=== PATIENT | male | born 2000 ===

== ENCOUNTER 2018-06-21 00:56 | Emergency (ER) | payer OTHER ==
[2018-06-21] MEDS ORDERED: NS 0.9% 1000 ML** 2,000 ML IV ONE (01:10)
[2018-06-21] MEDS ORDERED: Ondansetron INJ* 2 MG/ML VIAL IV ONE (01:10)
--- NOTE | 2018-06-21 01:16 | ED ---
Abdominal Pain/Male - HPI Summary HPI Summary: This patient is a 17 year old M presenting to [facility] with a chief complaint of emesis since 20:30 tonight. The patient rates the pain 4/10 in severity. Patient reports hematemesis, headache, abdominal discomfort throughout the day, upper abdominal pain currently, diarrhea, and feeling faint upon standing. Patient denies being on any medication or knowing anyone else who is sick. - History of Current Complaint Chief Complaint: EDAbdPain Stated Complaint: POSS SYNCOPE Time Seen by Provider: 06/21/18 01:05 Hx Obtained From: Patient Onset/Duration: Sudden Onset, Lasting Hours, Still Present Severity Initially: Moderate Severity Currently: Moderate Pain Intensity: 4 Pain Scale Used: 0-10 Numeric Location: Other - Upper abdomen Associated Signs And Symptoms: Positive: Vomiting, Diarrhea, Other - Hematemesis , headache, and feeling "faint" upon standing up. - Allergies/Home Medications Allergies/Adverse Reactions: Allergies Allergy/AdvReac Type Severity Reaction Status Date / Time No Known Allergies Allergy Verified 06/21/18 01:01 PMH/Surg Hx/FS Hx/Imm Hx Endocrine/Hematology History: Denies: Hx Diabetes Cardiovascular History: Denies: Hx Hypertension, Hx Pacemaker/ICD History: Denies: Hx Dialysis, Hx Renal Disease Sensory History: Denies: Hx Hearing Aid Psychiatric History: Denies: Hx Panic Disorder - Surgical History Surgery Procedure, Year, and Place: WISDOM TEETH Infectious Disease History: No Infectious Disease History: Denies: Traveled Outside the [place] in Last 30 Days - Family History Known Family History: Positive: Diabetes Negative: Cardiac Disease, Hypertension - Social History Occupation: Student Lives: Dormitory/Roommates Alcohol Use: Occasionally Substance Use Type: Reports: None Hx Tobacco Use: No Review of Systems Positive: Abdominal Pain - abdominal discomfort throughout the day, upper abdominal pain currently, Vomiting - Hematemesis, Diarrhea Neurological: Other - Feeling "faint" upon standing Positive: Headache All Other Systems Reviewed And Are Negative: Yes Physical Exam - Summary Physical Exam Summary: Appearance: Well-appearing, Well-nourished, lying in bed comfortably Skin: Warm, dry, no obvious rash Eyes: sclera anicteric, no conjunctival pallor ENT: mucous membranes moist, pharynx appears normal Neck: Supple, nontender Respiratory: Clear to auscultation, no signs of respiratory distress Cardiovascular: Normal S1, S2. No murmurs. Normal distal pulses in tibial and radial bilaterally. Abdomen: Soft, nontender, normal active bowel sounds present Musculoskeletal: Normal, Strength/ROM Intact Neurological: A&Ox3, awake and alert, mentation is normal, speech is fluent and appropriate Psychiatric: affect is normal, does not appear anxious or depressed Triage Information Reviewed: Yes Vital Signs On Initial Exam: Initial Vitals Temp Pulse Resp BP Pulse Ox 98.0 F 119 16 103/73 98 06/21/18 00:59 06/21/18 00:59 06/21/18 00:59 06/21/18 00:59 06/21/18 00:59 Vital Signs Reviewed: Yes Diagnostics - Vital Signs Vital Signs Temp Pulse Resp BP Pulse Ox 06/21/18 00:59 98.0 F 119 16 103/73 98 - Laboratory Result Diagrams: 06/21/18 01:19 06/21/18 01:19 Lab Statement: Any lab studies that have been ordered have been reviewed, and results considered in the medical decision making process. Abdominal Pain Male Course/Dx - Course Course Of Treatment: This patient is a 17 year old M presenting to [facility] with a chief complaint of emesis since 20:30 tonight. Patient will be discharged with a dx of viral gastroenteritis. - Diagnoses Provider Diagnoses: Viral gastroenteritis Discharge - Sign-Out/Discharge Documenting (check all that apply): Patient Departure - D/C Patient Received Moderate/Deep Sedation with Procedure: No - Discharge Plan Condition: Good Disposition: HOME Prescriptions: Ondansetron ODT TAB* [Zofran 4 MG Odt TAB*] 8 mg PO Q6H PRN #10 tab.odt PRN Reason: Nausea Patient Education Materials: Gastroenteritis (ED) Referrals: [facility] [Outside] - 2 Days (if not improving) - Billing Disposition and Condition Condition: GOOD Disposition: Home - Attestation Statements Document Initiated by Scribe: Yes Documenting Scribe: Jonathan Sosa Provider For Whom Dane is Documenting (Include Credential): Zheng Neumann MD Scribe Attestation: Jonathan Mayfield, scribed for Zheng Neumann MD on 06/22/18 at 0448. Scribe Documentation Reviewed: Yes Provider Attestation: The documentation as recorded by the Jonathan mckeon accurately reflects the service I personally performed and the decisions made by me, Zheng Neumann MD Status of Scribe Document: Viewed
[2018-06-21 01:29] LABS: ABS Basophils 0.1 10^3/ul (0-0.2); ABS Eosinophils 0.1 10^3/ul (0-0.6); ABS Lymphocytes 0.2 10^3/ul (1.0-4.8); ABS Neutrophils 13.7 10^3/ul (1.5-7.7); ABS Nucleated RBC 0.1 10^3/ul; Eosinophil % 0.3 %; Hematocrit 53 % (42-52); Hemoglobin 18.2 g/dl (14.0-18.0); Lymphocyte % 1.6 %; Mean Corpuscular HGB Conc 34 g/dl (31-36); Mean Corpuscular Hemoglobin 30 pg (27-31); Mean Corpuscular Volume 87 fL (80-94); Mean Platelet Volume 7.8 fL (7.4-10.4); Nucleated Red Blood Cells % 0.4; Platelet Count 238 10^3/ul (150-450); Red Blood Count 6.08 10^6/ul (4.00-5.40); Red Cell Distribution Width 14 % (10.5-15); White Blood Count 15.2 10^3/ul (3.5-10.8)
[2018-06-21 01:48] LABS: ALT 21 U/L (7-52); AST 28 U/L (13-39); Albumin 5.4 g/dL (3.2-5.2); Albumin/Globulin Ratio 1.7 (1-3); Alkaline Phosphatase 64 U/L (34-104); Anion Gap 14 mmol/L (2-11); BUN/Creatinine Ratio 15.5 (8-20); Blood Urea Nitrogen 17 mg/dL (6-24); C Reactive Protein 2.64 mg/L (<8.01); CO2 Carbon Dioxide 22 mmol/L (22-32); Calcium 10.2 mg/dL (8.6-10.3); Chloride 102 mmol/L (101-111); EGFR African American 104.3 (>60); EGFR Non-African American 86.2 (>60); Globulin 3.2 g/dL (2-4); Glucose 128 mg/dL (70-100); Potassium 4.4 mmol/L (3.5-5.0); Sodium 138 mmol/L (135-145); Total Protein 8.6 g/dL (6.4-8.9)
[2018-06-21 02:42] LABS: Urine Appearance Cloudy; Urine Bacteria Absent (Absent); Urine Bilirubin Negative (Negative); Urine Blood Negative (Negative); Urine Color Amber; Urine Glucose Negative (Negative); Urine Ketones 2+ (Negative); Urine Nitrite Negative (Negative); Urine Protein 2+(100 mg/dL) (Negative); Urine Red Blood Cell Absent (Absent); Urine Specific Gravity 1.028 (1.010-1.030); Urine Urobilinogen Negative (Negative); Urine White Blood Cell Absent (Absent)
[2018-06-21] MEDS ORDERED: NS 0.9% 1000 ML** 1,000 ML IV ONE (04:09)
[2018-06-21] MEDS ORDERED: PROCHLORPERAZINE INJ 5 MG/ML 2 ML VIAL IV ONE (04:09)
[2018-06-21] MEDS ORDERED: Acetaminophen TAB* 325 MG PO ONE (04:15)
[2018-06-21] MEDS ORDERED: Ibuprofen TAB* 400 MG PO ONE (05:37)
[2018-06-21 07:02] VITALS: BP 104/59
== END 2018-06-21 07:02 | disposition home or self-care (01) ==
LOC: ED 00:56
DX: A08.4 Viral intestinal infection, unspecified (principal)
CPT/HCPCS: 36415; 80053; 81003; 81015; 83605; 83690; 85025; 86140; 96361; 96374; 96375; 99284; A9270-GY; J0780; J2405